=== PATIENT | female | born 1995 | race Caucasian/White ===

== ENCOUNTER 2025-04-07 01:36 | Inpatient (IN) | payer OTHER ==
[2025-04-07] VITALS (17 sets, daily range): BP systolic 92–123; BP diastolic 55–77
[~2025-04-07] VITALS: Ht 144.8 cm; Wt 55.6 kg
[2025-04-07] MEDS ORDERED: SODIUM CHLORIDE 0.9% 1,000 ML IV ONE (02:00)
[2025-04-07] MEDS ORDERED: LACTATED RINGER'S 1,000 ML IV ONE ×5 (02:00→12:30)
[2025-04-07] MEDS ORDERED: Insulin Regular, Human 100 UNIT/ML ML IV ONE (02:00)
[2025-04-07] MEDS ORDERED: IBLOOD GLUCOSE TEST STRIP 1 EA TEST XX ONE (02:00)
[2025-04-07 02:20] LABS: BASOPHILS 0.5 % (0.1-1.2); EOSINOPHILS 0.1 % (0.7-5.8); LYMPHOCYTES 8.1 % (19.3-51.7); MCH 31.0 PG (25.6-32.2); MCHC 33.2 g/dL (32.2-35.5); MCV 93.4 fL (79.4-94.8); MONOCYTES 4.2 % (4.7-12.5); NEUTROPHILS 86.7 % (34.0-71.1); RBC 4.58 M/uL (3.93-5.22)
[2025-04-07] MEDS ORDERED: SODIUM BICARBONATE 50 MEQ/50 ML SYR IV ONE (02:30)
[2025-04-07 02:36] LABS: ALT (SGPT) 40.0 U/L (14-59); AST (SGOT) 42.0 U/L (15-37); GLOMERULAR FILTRATION RATE,EST 66.0 mL/min (>60); PROTEIN, TOTAL 8.8 g/dL (6.4-8.2); UREA NITROGEN 17.0 mg/dL (7-18)
[2025-04-07] MEDS ORDERED: LACTATED RINGER'S 1,000 ML IV SCH ×4 (02:45→10:45)
[2025-04-07] MEDS ORDERED: SODIUM BICARBONATE 50 MEQ/50 ML VIAL IV ONE (02:45)
[2025-04-07 02:51] LABS: LACTIC ACID, BLOOD 2.1 mmol/L (0.4-2.0)
[2025-04-07 03:40] LABS: INFLUENZA B NAA NEGATIVE (NEGATIVE); RESPIRATORY SYNCYTIAL VIR NAA NEGATIVE (NEGATIVE)
[2025-04-07] MEDS ORDERED: CALCIUM GLUCONATE 1,000 MG/10 ML VIAL IV ONE (03:45)
[2025-04-07 04:25] LABS: GLOMERULAR FILTRATION RATE,EST 88.0 mL/min (>60); UREA NITROGEN 16.0 mg/dL (7-18)
[2025-04-07] MEDS ORDERED: NOVOLOG100 UNIT/1 SUB-Q (04:28)
[2025-04-07] MEDS ORDERED: LANTUS100 UNITS/ SUB-Q (04:28)
[2025-04-07] MEDS ORDERED: LOSARTAN POTASS25 MG PO (04:29)
[2025-04-07] MEDS ORDERED: LEVOTHYROXINE137 MCG PO (04:29)
[2025-04-07] MEDS ORDERED: WELLBUTRIN XL150 MG PO (04:29)
[2025-04-07 04:36] LABS: BLOOD/HGB, URINE NEGATIVE (Negative); KETONE, URINE >=80 (Negative); LEUK ESTERASE, URINE NEGATIVE (negative); NITRITE, URINE NEGATIVE (negative)
[2025-04-07] MEDS ORDERED: Insulin Regular 100 Unit/100 Ml Bag IV SCH (05:00)
[2025-04-07] MEDS ORDERED: DEXTROSE 50% 50 ML SYR IV PRN ×4 (05:00→20:30)
[2025-04-07] MEDS ORDERED: DEXTROSE 5% - NACL 0.45% 1,000 ML IV SCH (05:00)
[2025-04-07] MEDS ORDERED: IBLOOD GLUCOSE TEST STRIP 1 EA TEST VI SCH ×2 (05:00→20:00)
[2025-04-07] MEDS ORDERED: DEXTROSE 5% 1,000 ML IV PRN ×2 (05:00→20:30)
[2025-04-07] MEDS ORDERED: GLUCAGON,HUMAN RECOMBINANT 1 MG/ML VIAL SUB-Q PRN ×2 (05:00→20:30)
[2025-04-07] MEDS ORDERED: ACETAMINOPHEN 325 MG TAB PO PRN (05:00)
[2025-04-07] MEDS ORDERED: IBLOOD GLUCOSE TEST STRIP 1 EA TEST XX PRN ×2 (05:00→20:30)
--- NOTE | 2025-04-07 06:05 | NUR ---
PT TO CCU FROM ED, INSULIN DRIP INFUSING AT 5 UNITS/HR WITH LR AT 250ML/HR.
--- NOTE | 2025-04-07 06:10 | NUR ---
DR WESTFALL IN TO SEE PT.
[2025-04-07 06:11] LABS: BASOPHILS 0.3 % (0.1-1.2); EOSINOPHILS 0 % (0.7-5.8); LYMPHOCYTES 9.5 % (19.3-51.7); MCH 30.8 PG (25.6-32.2); MCHC 34.1 g/dL (32.2-35.5); MCV 90.5 fL (79.4-94.8); MONOCYTES 7.0 % (4.7-12.5); NEUTROPHILS 82.8 % (34.0-71.1); RBC 3.99 M/uL (3.93-5.22)
[2025-04-07 06:21] LABS: GLOMERULAR FILTRATION RATE,EST 84.0 mL/min (>60); UREA NITROGEN 14.0 mg/dL (7-18)
[2025-04-07] MEDS ORDERED: LEVOTHYROXINE SODIUM 137 MCG TAB PO SCH (07:00)
--- NOTE | 2025-04-07 07:45 | NUR ---
report from frances rn, pt with call light in bed - very sleepy s/o at bedside also resting. visible to rn station, fluid bolus is going and iv x2 wnl.
[2025-04-07] MEDS ORDERED: POTASSIUM CHLORIDE 20 MEQ in LACTATED RINGER'S 1,000 ML IV SCH (08:15)
[2025-04-07] MEDS ORDERED: INSULIN REGULAR IN 0.9 % NACL 100 ML IV SCH (08:30)
[2025-04-07] MEDS ORDERED: ENOXAPARIN SODIUM 40 MG/0.4 ML SYR SUB-Q SCH (09:00)
[2025-04-07] MEDS ORDERED: LOSARTAN POTASSIUM 25 MG TAB PO SCH ×2 (09:00)
[2025-04-07] MEDS ORDERED: buPROPion HCL XL 150 MG TAB.XL.24H PO SCH (09:00)
--- NOTE | 2025-04-07 09:45 | NUR ---
PT WALKED WITH THIS RN TO BR TO VOID 600 ML URINE, BS 167 CHECKED WITH ARGELIA AND CHANGED INSULIN DRIP - SEE FLOW SHEET. PT ALERT AND ORIENTED - DENIES NEEDS. CALL LIGHT IN REACH. IV SITES WNL.
[2025-04-07 10:16] LABS: GLOMERULAR FILTRATION RATE,EST 110.0 mL/min (>60); UREA NITROGEN 8.0 mg/dL (7-18)
[2025-04-07] MEDS ORDERED: PHARMACY RENAL DOSE ADJUSTMENT 1 DOSE MISC PO SCH (12:00)
--- NOTE | 2025-04-07 13:30 | NUR ---
pt up to void 500 ml urine. amb steady and pt alert and oriented. tolerating a clear liq diet. fluid bolus fusing well per order.
[2025-04-07 14:10] LABS: GLOMERULAR FILTRATION RATE,EST 121.0 mL/min (>60); UREA NITROGEN 4.0 mg/dL (7-18)
--- NOTE | 2025-04-07 15:00 | NUR ---
DR WESTFALL HERE AND AWARE OF BLOOD SUGAR 105, PT AMB TO BATHROOM WITH STAFF.
[2025-04-07 18:16] LABS: GLOMERULAR FILTRATION RATE,EST 112.0 mL/min (>60); UREA NITROGEN 3.0 mg/dL (7-18)
--- NOTE | 2025-04-07 18:26 | NUR ---
pt and rn amb to bathroom to void, oral care and bed bath wipes done, pt steady on feet - bs 119 and pump titrated. pt alert and oriented.
--- NOTE | 2025-04-07 19:30 | NUR ---
SHIFT REPORT RECEIVED. PATIENT RESTING IN BED WATCHING TV. NEW BAG IV FLUIDS STARTED. IV SITE WNL. PATIENT DENIED NEEDS. CALL LIGHT IN REACH.
--- NOTE | 2025-04-07 20:15 | NUR ---
REVIED PLAN OF CARE WITH INCLUDING MOST RECENT LABS. NO CHANGE TO ORDERS AT THIS TIME.
[2025-04-07] MEDS ORDERED: MAGNESIUM HYDROXIDE/AL HYDROX 30 ML CUP PO PRN (21:15)
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
[2025-04-07 22:16] LABS: GLOMERULAR FILTRATION RATE,EST 105.0 mL/min (>60); UREA NITROGEN 3.0 mg/dL (7-18)
--- NOTE | 2025-04-07 22:33 | NUR ---
INSULIN DRIP STOPPED.
--- NOTE | 2025-04-07 22:42 | NUR ---
UPDATE TO ON LABS. ORDERS TO STOP INSULIN DRIP; PLACE PATIENT ON Q4H SSI AND GIVE HER HOME DOSE OF LONG ACTING INSULIN. REVIEWED ORDERS WITH TO VERIFY. DRIP STOPPED AT 2240.
[2025-04-07] MEDS ORDERED: INSULIN GLARGINE-YFGN 100 UNIT/ML ML SUB-Q ONE (22:45)
--- NOTE | 2025-04-07 23:08 | NUR ---
PATIENT GIVEN LONG ACTING INSULIN. PATIENT ALSO HAS A SANDWHICH BOX AND SUGAR FREE JELLO, PATIENT STATES SHE IS VERY HUNGRY.
[2025-04-08] VITALS (7 sets, daily range): BP systolic 98–116; BP diastolic 56–79
--- NOTE | 2025-04-08 00:20 | NUR ---
PATIENT RESTING IN BED; EYES CLOSED. WAKES WHEN RN ENTERED ROOM. PATIENT HAD ABOUT 50% OF HER SANDWICH BOX. DENIES GI UPSET. IV FLUIDS INFUSING PER ORDER; SITE WNL. PATIENT DENIED ANY NEEDS. CALL LIGHT IN REACH.
--- NOTE | 2025-04-08 01:43 | NUR ---
PT CALLS TO USE BR, PROVIED. PT TOLERATED WELL. PT STATES NO OTHER NEEDS. CALL LIGHT IN REACH.
[2025-04-08] MEDS ORDERED: Insulin Regular, Human 100 UNIT/ML ML SUB-Q SCH (02:00)
[2025-04-08] MEDS ORDERED: IBLOOD GLUCOSE TEST STRIP 1 EA TEST VI SCH (02:00)
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
[2025-04-08 02:19] LABS: GLOMERULAR FILTRATION RATE,EST 85.0 mL/min (>60); UREA NITROGEN 2.0 mg/dL (7-18)
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
[2025-04-08] MEDS ORDERED: LEVOTHYROXINE SODIUM 137 MCG TAB PO SCH (07:00)
[2025-04-08 07:29] LABS: BASOPHILS 0.5 % (0.1-1.2); EOSINOPHILS 0.9 % (0.7-5.8); LYMPHOCYTES 28.0 % (19.3-51.7); MCH 30.9 PG (25.6-32.2); MCHC 35.0 g/dL (32.2-35.5); MCV 88.4 fL (79.4-94.8); MONOCYTES 9.0 % (4.7-12.5); NEUTROPHILS 61.4 % (34.0-71.1); RBC 3.46 M/uL (3.93-5.22)
--- NOTE | 2025-04-08 07:30 | NUR ---
REPORT RECEIVED FROM NURYS IZQUIERDO, PT RESTING IN BED WITH EYES CLOSED, RESP EVEN AND UNLABORED, HR 80'S SINUS RHYTHM.
[2025-04-08 07:37] LABS: GLOMERULAR FILTRATION RATE,EST 125.0 mL/min (>60); UREA NITROGEN 2.0 mg/dL (7-18)
--- NOTE | 2025-04-08 07:56 | NUR ---
ALERT AND ORIENTED IN BED. SIGNIFICANT OTHER IN ROOM. PATIENT LIVES IN HOUSE IN [place], [place]. SHE HAS NO DME. SHE STATES SHE HAS A PCP, BUT IT IS A NEW PROVIDER TO HER AND SHE CAN NOT REMEMBER THE PROVIDER'S NAME. STATES SHE USES THE [facility] IN [place] FOR PHARMACY. STATES SHE DRIVES AT [facility]. PATIENT DENIES FINANCIAL CONCERNS. SHE STATES SHE CAN PAY UTILITIES AND FOR FOOD AND MEDICATIONS WITHOUT ISSUES. PLANS TO DC TO HOME WITH SIGNIFICANT OTHER WHEN MEDICALLY READY.
--- NOTE | 2025-04-08 08:10 | NUR ---
UR CLINICAL REVIEW: WENDY-PER [facility] REVIEW MEETS INPT FOR [facility] WITH NEED FOR IVF, INSULIN DRIP AND SERIAL LABS [facility] INPT 04/07/25 @ 0819 ORDER MATCHES REG CLINICALS FAXED TO [facility] FOR AUTH REVIEW DISCHARGE TO HOME WHEN STABLE 04/09/25 DC REVIEW
--- NOTE | 2025-04-08 08:30 | NUR ---
IN TO DO BLOOD SUGAR AND ASSESSMENT. BREAKFAST BROUGHT IN TO PT. PT UP TO BATHROOM AND THEN BACK TO BED TO EAT BREAKFAST.
--- NOTE | 2025-04-08 08:33 | NUR ---
BREAKFAST TRAY DELIVERED TO ROOM, REFRESHED WATER PER REQUEST. PT CBG 168. DENIES FURTHER NEEDS, FAMILY AT BEDSIDE. CALL LIGHT IN REACH
--- NOTE | 2025-04-08 09:58 | NUR ---
DISCHARGE INSTRUCTIONS GIVEN TO PT, BOTH IV'S DC'D WITH CATHETER TIP INTACT. PHARMACY IN TO TALK WITH PT ABOUT HER HOME MEDICATIONS.
--- NOTE | 2025-04-08 10:00 | NUR ---
MED REC COMPLETE
== END 2025-04-08 09:43 | disposition home or self-care (01) | DRG 639 ==
LOC: ED 01:36 → CCU 04:47
PROVIDERS: Family Medicine; ADMIT Internal Medicine; ATTEND Internal Medicine
DX: E10.10 Type 1 diabetes mellitus with ketoacidosis without coma (principal); E03.9 Hypothyroidism, unspecified; F32.A Depression, unspecified; D72.829 Elevated white blood cell count, unspecified; Z79.890 Hormone replacement therapy; Z79.4 Long term (current) use of insulin; Z79.899 Other long term (current) drug therapy; Z91.148 Patient's other noncompliance with medication regimen for other reason
CPT/HCPCS: 36415; 74177; 80048; 80053; 81003; 82010; 82803; 83036; 83605; 83690; 83735; 84703; 85025; 87502; A9270; J0612; J0696; J1650; J1790; J1815; J2405; J3480; J7121; Q9967; U0002